=== PATIENT | female | born 1945 | race Caucasian/White ===

== ENCOUNTER 2017-09-25 09:05 | Inpatient (IN) | payer OTHER ==
--- NOTE | 2017-09-24 17:45 | GHP ---
[f rep st] HISTORY AND PHYSICAL DATE OF ADMISSION: 09/25/2017 This is for surgery for tomorrow, September 25, 2017. HISTORY OF PRESENT ILLNESS: The patient is a very pleasant 72-year-old female who comes to our offic e for the first time for evaluation of diagnosed gallstones. The patient reports she had a "terrible attack of abdominal pain" approximately 5 weeks ago and since that time has had similar episodes eliceo ry 4-5 days, accompanied by chills and vomiting. She had an ultrasound done at [facility], which demonstrated cholelithiasis, possible choledocholithiasis. She had laboratory studies done on er 2016, which demonstrated increased liver function tests, lipase and calcium. MEDICATIONS: Lisinopril. PAST SURGICAL HISTORY: Hysterectomy, oophorectomy, tonsillectomy, right nephrectomy. ALLERGIES: No known drug allergies. SOCIAL HISTORY: Never smoker, . REVIEW OF SYSTEMS: She had a negative 10-point review of systems. PHYSICAL EXAM: GENERAL: The patient is a pleasant female, in no apparent distress, non-jaundiced. HEAD AND NECK: Normocephalic, atraumatic. CHEST: CTA bilaterally. HEART: Regular rate. ABDOMEN: Soft, nontender. There is a midline suprapubic scar consistent with hysterectomy. EXTREMITIES: N o lower extremity edema. Normal dorsalis pedis pulse to palpation. LABORATORY STUDIES: Total bilirubin 1.5, AST 124, ALT 95, alkaline phosphatase 389, amylase 92. Laboratory studies from September 09, 2017: Alkaline phosphatase 437, AST 113, ALT 69. RADIOLOGY: [facility] ultrasound was reviewed, which demonstrates cholelithiasis, possible choled ocholithiasis. IMPRESSION: Cholelithiasis/choledocholithiasis. RECOMMENDATION: Laparoscopic cholecystectomy with cholangiogram was discussed with the patient in de tail, including risks of common bile duct injury, infection, nerve injury, need for ERCP all discusse d with the patient today and she will be scheduled for surgery tomorrow. /[id number]/MODL
--- NOTE | 2017-09-25 06:41 | PDHPUP ---
History & Physical Update H&P update statement: This history and physical update is based on an assessment of the patient which was completed after admission or registration (within 24 hours), but prior to the surgery/procedure. updated, done last evening
[2017-09-25] MEDS ORDERED: LR 1,000 ML IV ONE (09:24)
[2017-09-25] MEDS ORDERED: cefOXitin SODIUM 2 GM in D5W 100 ML IV ONE (09:24)
[2017-09-25] MEDS ORDERED: LIDOCAINE 1% 2 ML INJ ID PRN (09:24)
[2017-09-25] MEDS ORDERED: MIDAZOLAM 2 MG/2 ML VIAL IVP ONE (10:35)
--- NOTE | 2017-09-25 10:39 | PDANEPAE ---
ANE History of Present Illness L breast excisional Bx ANE Past Medical History - Cardiovascular History Hx Hypertension: Yes Hx Arrhythmias: No Hx Chest Pain: No Hx Coronary Artery / Peripheral Vascular Disease: No Hx CHF / Valvular Disease: No Hx Palpitations: No - Pulmonary History Hx COPD: No Hx Asthma/Reactive Airway Disease: No Hx Recent Upper Respiratory Infection: No Hx Oxygen in Use at Home: No Hx Sleep Apnea: No Sleep Apnea Screening Result - Last Documented: Negative Pulmonary History Comment: Hx triad asthma-currently stable - Neurologic History Hx Cerebrovascular Accident: No Hx Seizures: No Hx Dementia: No - Endocrine History Hx Diabetes: No - Renal History Hx Renal Disorders: Yes Renal History Comment: R kidney removed - Liver History Hx Hepatic Disorders: No - Neurological & Psychiatric Hx Hx Neurological and Psychiatric Disorders: No - Cancer History Hx Cancer: No - Congenital Disorder History Hx Congenital Disorders: No - GI History Hx Gastrointestinal Disorders: No - Other Health History Other Health History: none - Chronic Pain History Chronic Pain: No - Surgical History Prior Surgeries: NONE ANE Review of Systems Review of Systems: - Exercise capacity METS (RN): 4 METS ANE Patient History - Allergies Allergies/Adverse Reactions: No Known Allergies Allergy (Verified 09/24/17 16:49) - Home Medications Home medications: home medication list seen and reviewed Home Medications: Lisinopril 07/25/15 [Last Taken 09/24/17] - NPO status NPO Status: no food or drink >8 hours (H20 at 0600) NPO Since - Liquids (Date): 09/25/17 NPO Since - Liquids (Time): 09:15 NPO Since - Solids (Date): 09/24/17 NPO Since - Solids (Time): 10:00 - Anes Hx Anes Hx: no prior problems - Smoking Hx Smoking Status: Never smoked - Alcohol Use Alcohol Use: Rarely - Family Anes Hx Family Anes Hx: none Family Hx Anesthesia Complications: NONE ANE Labs/Vital Signs - Vital Signs Blood Pressure: 131/79 Heart Rate: 101 Respiratory Rate: 16 O2 Sat (%): 92 Height: 160.02 cm Weight: 62.142 kg ANE Physical Exam - Airway Neck exam: FROM Mallampati Score: Class 1 Mouth exam: normal dental/mouth exam - Pulmonary Pulmonary: no respiratory distress - Cardiovascular Cardiovascular: regular rate and rhythym - ASA Status ASA Status: II ANE Anesthesia Plan Anesthesia Plan: GA with mask (R/B/A explained and pt. agrees to proceed)
[2017-09-25] MEDS ORDERED: BUPIVACAINE 0.5% 30 ML SDV ONE ×2 (11:24→13:30)
[2017-09-25] MEDS ORDERED: HEPARIN 1000 UNIT/1 ML MDV ONE (11:25)
[2017-09-25] MEDS ORDERED: ceFAZolin 1 GM/5 ML SYR ONE (11:26)
[2017-09-25] MEDS ORDERED: IOTHALAMATE MEG (CONRAY) 50 ML VIAL IV ONE (11:45)
--- NOTE | 2017-09-25 12:17 | PDANEPAE ---
ANE History of Present Illness cholelithiasis s/f lap nuzhat with grams ANE Past Medical History - Cardiovascular History Hx Hypertension: Yes Hx Arrhythmias: No Hx Chest Pain: No Hx Coronary Artery / Peripheral Vascular Disease: No Hx CHF / Valvular Disease: No Hx Palpitations: No - Pulmonary History Hx COPD: No Hx Asthma/Reactive Airway Disease: No Hx Recent Upper Respiratory Infection: No Hx Oxygen in Use at Home: No Hx Sleep Apnea: No Sleep Apnea Screening Result - Last Documented: Negative - Neurologic History Hx Cerebrovascular Accident: No Hx Seizures: No Hx Dementia: No - Endocrine History Hx Diabetes: No - Renal History Hx Renal Disorders: Yes Renal History Comment: R kidney removed - Liver History Hx Hepatic Disorders: No - Neurological & Psychiatric Hx Hx Neurological and Psychiatric Disorders: No - Cancer History Hx Cancer: No - Congenital Disorder History Hx Congenital Disorders: No - GI History Hx Gastrointestinal Disorders: No - Other Health History Other Health History: none - Chronic Pain History Chronic Pain: No - Surgical History Prior Surgeries: NONE ANE Review of Systems Review of Systems: - Exercise capacity METS (RN): 4 METS ANE Patient History - Allergies Allergies/Adverse Reactions: No Known Allergies Allergy (Verified 09/24/17 16:49) - Home Medications Home medications: home medication list seen and reviewed Home Medications: Lisinopril 07/25/15 [Last Taken 09/24/17] - NPO status NPO Since - Liquids (Date): 09/25/17 NPO Since - Liquids (Time): 09:15 NPO Since - Solids (Date): 09/24/17 NPO Since - Solids (Time): 10:00 - Smoking Hx Smoking Status: Never smoked - Alcohol Use Alcohol Use: Rarely - Family Anes Hx Family Anes Hx: none Family Hx Anesthesia Complications: NONE ANE Labs/Vital Signs - Labs - BMP Sodium: reviewed and okay - Vital Signs Blood Pressure: 131/79 Heart Rate: 101 Respiratory Rate: 16 O2 Sat (%): 92 Height: 160.02 cm Weight: 62.142 kg ANE Physical Exam - Airway Mallampati Score: Class 1 - Pulmonary Pulmonary: no respiratory distress - Cardiovascular Cardiovascular: regular rate and rhythym - ASA Status ASA Status: II ANE Anesthesia Plan Anesthesia Plan: general endotracheal anesthesia
[2017-09-25] MEDS ORDERED: ONDANSETRON 4 MG/2 ML VIAL IVP PRN ×2 (12:26→13:41)
--- NOTE | 2017-09-25 12:29 | POSTOPPROG ---
Post Op Note Date of Operation: 09/25/17 Surgeon: Javon Blackwell Anesthesiologist: JESUS Anesthesia: GET(General Endotracheal) Pre-op Diagnosis: ACUTE CHOLECYSTITIS Post-op Diagnosis: SAME Indication: PAIN Procedure: LAP CHOLEY WITH GRAMS Findings: acute nuzhat, large cd with stone Inf/Abcess present in the surg proc area at time of surgery?: Yes Depth: Organ Space EBL: Minimal Complications: 0 Specimen(s): GALLBLADDER
[2017-09-25] MEDS ORDERED: D5W 1/2 NS W/ 20 KCl/L 1,000 ML IV SCH (12:30)
[2017-09-25] MEDS ORDERED: PROPOFOL/EMULSION 500 MG/50 ML BOTTLE IV ONE (12:35)
[2017-09-25] MEDS ORDERED: fentaNYL 100 MCG/2 ML INJ ONE ×2 (12:35→14:16)
[2017-09-25] MEDS ORDERED: LIDOCAINE 2% 100 MG/5 ML SYR ONE (12:37)
[2017-09-25] MEDS ORDERED: ROCURONIUM 50 MG/5 ML VIAL ONE (12:37)
[2017-09-25] MEDS ORDERED: DEXAMETHASONE 4 MG/ML VIAL ONE (13:03)
[2017-09-25] MEDS ORDERED: ONDANSETRON 4 MG/2 ML VIAL ONE (13:03)
[2017-09-25] MEDS ORDERED: PHENYLEPHRINE HCL 100 MCG/ML SYR ONE (13:30)
[2017-09-25] MEDS ORDERED: PROMETHAZINE HCL 25 MG/ML INJ IVP PRN (13:41)
[2017-09-25] MEDS ORDERED: LABETALOL HCL 5 MG/ML 20 ML MDV IVP PRN (13:41)
[2017-09-25] MEDS ORDERED: HYDROCODONE/APAP 5/325 TAB PO PRN (13:41)
[2017-09-25] MEDS ORDERED: METOCLOPRAMIDE 10 MG/2 ML VIAL IVP PRN (13:41)
[2017-09-25] MEDS ORDERED: OXYCODONE/APAP 5/325 TAB PO PRN (13:41)
[2017-09-25] MEDS ORDERED: DEXAMETHASONE 4 MG/ML VIAL IVP PRN (13:41)
[2017-09-25] MEDS ORDERED: PHENYLEPHRINE HCL 100 MCG/ML SYR IVP PRN (13:41)
[2017-09-25] MEDS ORDERED: NALOXONE HCL 0.4 MG/ML INJ IVP PRN (13:41)
[2017-09-25] MEDS ORDERED: MEPERIDINE 25 MG/ML SYR IVP PRN (13:41)
[2017-09-25] MEDS ORDERED: ALBUTEROL 3 ML DEYVIAL IH PRN (13:41)
[2017-09-25] MEDS ORDERED: ACETAMINOPHEN 500 MG TAB PO PRN (13:41)
[2017-09-25] MEDS ORDERED: LR 500 ML IV PRN (13:41)
[2017-09-25] MEDS ORDERED: SUGAMMADEX SODIUM 200 MG/2 ML VIAL IVP ONE (13:43)
[2017-09-25] MEDS: fentaNYL 100 MCG/2 ML INJ IVP PRN ×4 (14:18→14:48)
--- NOTE | 2017-09-25 15:04 | POSTANESTH ---
Post Anesthetic Evaluation Cardiovascular Status: Normal, Stable Respiratory Status: Normal, Stable Level of Consciousness/Mental Status: Can Participate in Eval Pain Control: Adequate, Prn Tx Ordered Nausea/Vomiting Control: Adequate, Prn Tx Ordered Complications Possibly Related to Anesthesia: None Noted
[2017-09-25] MEDS: KETOROLAC 15 MG/1 ML SDV IVP SCH ×2 (18:03→23:22)
[2017-09-25] MEDS: HYDROCODONE/APAP 5/325 TAB PO PRN (19:29)
--- NOTE | 2017-09-26 00:27 | GCON ---
[f rep st] CONSULTATION DATE OF CONSULTATION: 09/25/2017 REASON FOR CONSULTATION: Choledocholithiasis. HISTORY OF PRESENT ILLNESS: The patient is a very pleasant 72-year-old female who has been having 5 weeks of biliary colic occurring approximately 4-5 days. The pain is in the upper mid abdomen, did not radiate to her back or her chest. It is accompanied by chills and some nausea and vomiting. She did have a sonogram at an outside imaging study that showed cholelithiasis and possible choledocholithiasis, and she had abnormal liver enzymes in conjunction with that. She underwent a laparoscopic cholecystectomy today, and intraoperative cholangiogram showed a common bile duct stone. I have been called to help evaluate and treatment and removal of the common bile duct stone. PAST MEDICAL HISTORY: Hypertension. PAST SURGICAL HISTORY: Hysterectomy, oophorectomy, tonsillectomy, right nephrectomy. MEDICATIONS: At home include lisinopril. ALLERGIES: No known drug allergies. SOCIAL HISTORY: She does not smoke. She is . She drinks alcohol infrequently. FAMILY HISTORY: no colon cancer REVIEW OF SYSTEMS: She is a little sedated post surgery. She does not complain any fevers or chills at present. She does have abdominal discomfort related to her operation today. As an outpatient, she denied any fevers, but she did have the chills and the nausea and vomiting as noted in the HPI. A complete review of systems was performed and is negative other than noted here and the HPI. PHYSICAL EXAMINATION: GENERAL: Well-developed well-nourished female sitting in her bed. She is somnolent, but easily arousable. VITAL SIGNS: Temperature 36.7, blood pressure 150/63, pulse 87, respirations 16, 99% on 2 L. HEENT: Eyes: Minimally icterus. JIHAN. EOMI. Mouth: No lesions. Moist membranes. NECK: Supple. No JVD. BACK: No spine tenderness. LUNGS: Clear to auscultation. CARDIAC: S1, S2. Regular rate and rhythm. No murmurs, rubs, or gallops appreciated. ABDOMEN: Bowel sounds are significantly decrease. Normal pitch. Abdomen is soft with mild tenderness. No rebound or guarding. EXTREMITIES: No cyanosis, clubbing, or edema. NEUROLOGIC: She is somnolent, but easily arousable. She is nonfocal. Cranial nerves intact. SKIN: No stigmata of advanced liver disease. No rashes. LABORATORY DATA: From today, total bilirubin 1.5, AST 124, ALT 95, alkaline phosphatase 39, total protein 6.6, albumin 3.4. Amylase 92. Fluoroscopy: The official reading just shows opacified common bile duct and cystic duct remnant. Dr. Blackwell recognized a stone on real-time imaging. My review with radiologist - probably distal CBD stone ASSESSMENT: 1. Choledocholithiasis. 2. Elevated liver enzymes. 3. Status post cholecystectomy. 4. Hypertension. RECOMMENDATIONS: 1. Proceed with ERCP tomorrow morning for choledocholithiasis, sphincterotomy, and stone removal. 2. Follow liver enzymes in morning. 3. Check CBC in a.m. 4. Further recommendations to follow results and clinical course. Thank you for allowing me to participate in the patient's healthcare. Do not hesitate to call me with any questions. Copy requested to: Alfa Dickson /[id number]/MODL MTDD
[2017-09-26] MEDS: KETOROLAC 15 MG/1 ML SDV IVP SCH ×4 (05:13→23:15)
[2017-09-26 06:03] LABS: % IMMATURE GRANULYOCYTES 0.6 % (0.0-1.1); ABSOLUTE IMMATURE GRANULOCYTES 0.07 10^3/uL (0.00-0.10); ADD DIFF? NO; ADD MORPH? NO; ADD SCAN? NO; ATYPICAL LYMPHOCYTE FLAG 0 (0-99); FRAGMENT RBC FLAG 0 (0-99); HEMATOCRIT 39.1 % (38.0-47.0); HEMOGLOBIN 12.9 g/dL (12.6-16.3); LEFT SHIFT FLG 10 (0-99); LIPEMIA HEMOLYSIS FLAG 80 (0-99); MEAN CELL HEMOGLOBIN 32.3 pg (27.9-34.1); MEAN CELL VOLUME 97.8 fL (81.5-99.8); MEAN PLATELET VOLUME 14.8 fL (8.7-11.7); PLATELET CLUMPS FLAG 0 (0-99); PLATELET COUNT 97 10^3/uL (150-400); RED CELL DISTRIBUTION WIDTH 13.4 % (11.5-15.2)
[2017-09-26 06:14] LABS: ALANINE AMINOTRANSFERASE 76 IU/L (9-52); ALBUMIN 2.7 g/dL (3.5-5.0); ALKALINE PHOSPHATASE 256 IU/L (38-126); AMYLASE 66 IU/L (30-110); ANION GAP 10 mEq/L (8-16); ASPARTATE AMINOTRANSFERASE 83 IU/L (14-46); BILIRUBIN,TOTAL 3.3 mg/dL (0.1-1.4); BILIRUBIN-CONJUGATED 1.6 mg/dL (0.0-0.5); BILIRUBIN-UNCONJUGATED 1.7 mg/dL (0.0-1.1); CALCIUM 10.1 mg/dL (8.5-10.4); CARBON DIOXIDE 23 mEq/l (22-31); CHLORIDE 101 mEq/L (97-110); CREATININE 0.9 mg/dL (0.6-1.0); GLOMERULAR FILTRATION RATE > 60; GLUCOSE 125 mg/dL (70-100); POTASSIUM 5.3 mEq/L (3.5-5.2); SODIUM 134 mEq/L (134-144); TOTAL PROTEIN 5.2 g/dL (6.3-8.2)
[2017-09-26] MEDS: ERTAPENEM 1 GM VIAL IVP SCH (09:15)
[2017-09-26] MEDS: HYDROmorphONE/DILAUDID 1 MG/ML INJ IVP PRN ×2 (09:15→13:35)
[2017-09-26] MEDS: LISINOPRIL 20 MG TAB PO SCH (09:15)
--- NOTE | 2017-09-26 12:15 | ASMTCMCOM ---
CM Note CM Note Notes: Spoke w/RN, anticipate pt will dc home w/support of when medically stable. CM available for any changes. Date Signed: 09/26/2017 12:14 PM Electronically Signed By:Kirsten Smith RN
[2017-09-26] MEDS ORDERED: GLUCAGON HCL 1 MG VIAL ONE (12:28)
[2017-09-26] MEDS ORDERED: IOTHALAMATE MEG (CONRAY) 50 ML VIAL IV ONE (12:28)
--- NOTE | 2017-09-26 13:27 | SOAPPROG ---
SOAP Progress Note Assessment/Plan: Assessment: Comfortable/afebrile/abdomen soft and nontender/wound okay/nonicteric Plan: ERCP today 09/26/17 13:26 Objective: Vital Signs Temp Pulse Resp BP Pulse Ox 37.7 C 93 15 158/73 H 93 09/26/17 11:21 09/26/17 11:21 09/26/17 11:21 09/26/17 11:21 09/26/17 11:21 Laboratory Results 09/26/17 05:01 09/26/17 05:01 09/25/17 09/26/17 09/27/17 05:59 05:59 05:59 Intake Total 1575 Output Total 200 Balance 1375 ICD10 Worksheet Patient Problems: Problems Problem Status Onset Gallstone pancreatitis Acute - ICD10 Problem Qualifiers (1) Gallstone pancreatitis
[2017-09-26] MEDS ORDERED: MIDAZOLAM 2 MG/2 ML VIAL IVP ONE (15:00)
[2017-09-26] MEDS ORDERED: D5W 1/2 NS 1,000 ML IV SCH (15:00)
--- NOTE | 2017-09-26 15:03 | PDANEPAE ---
ANE History of Present Illness s/p lap nuzhat with retained common duct stone. Now s/f ERCP ANE Past Medical History - Cardiovascular History Hx Hypertension: Yes Hx Arrhythmias: No Hx Chest Pain: No Hx Coronary Artery / Peripheral Vascular Disease: No Hx CHF / Valvular Disease: No Hx Palpitations: No - Pulmonary History Hx COPD: No Hx Asthma/Reactive Airway Disease: No Hx Recent Upper Respiratory Infection: No Hx Oxygen in Use at Home: No Hx Sleep Apnea: No Sleep Apnea Screening Result - Last Documented: Negative - Neurologic History Hx Cerebrovascular Accident: No Hx Seizures: No Hx Dementia: No - Endocrine History Hx Diabetes: No - Renal History Hx Renal Disorders: Yes Renal History Comment: R kidney removed - Liver History Hx Hepatic Disorders: No - Neurological & Psychiatric Hx Hx Neurological and Psychiatric Disorders: No - Cancer History Hx Cancer: No - Congenital Disorder History Hx Congenital Disorders: No - GI History Hx Gastrointestinal Disorders: No - Other Health History Other Health History: none - Chronic Pain History Chronic Pain: No - Surgical History Prior Surgeries: NONE ANE Review of Systems Review of Systems: - Exercise capacity METS (RN): 4 METS ANE Patient History - Allergies Allergies/Adverse Reactions: No Known Allergies Allergy (Verified 09/24/17 16:49) - Home Medications Home medications: home medication list seen and reviewed Home Medications: Lisinopril [Zestril 20 mg (*)] 20 mg PO DAILY 07/25/15 [Last Taken 09/24/17] Cholecalciferol Vit D3 [Vitamin D3 2000 units tab (OTC)] 2,000 units PO DAILY [Last Taken Unknown] - NPO status NPO Status: no food or drink >8 hours NPO Since - Liquids (Date): 09/26/17 NPO Since - Liquids (Time): 00:00 NPO Since - Solids (Date): 09/25/17 NPO Since - Solids (Time): 20:00 - Anes Hx Anes Hx: no prior problems - Smoking Hx Smoking Status: Never smoked - Alcohol Use Alcohol Use: Rarely - Family Anes Hx Family Anes Hx: none Family Hx Anesthesia Complications: NONE ANE Labs/Vital Signs - Labs Result Diagrams: 09/26/17 05:01 09/26/17 05:01 - Vital Signs Blood Pressure: 158/73 Heart Rate: 93 Respiratory Rate: 15 O2 Sat (%): 93 Height: 160.02 cm Weight: 62.142 kg ANE Physical Exam - Airway Neck exam: FROM Mallampati Score: Class 2 Mouth exam: normal dental/mouth exam - Pulmonary Pulmonary: no respiratory distress - Cardiovascular Cardiovascular: regular rate and rhythym - ASA Status ASA Status: II ANE Anesthesia Plan Anesthesia Plan: general endotracheal anesthesia
[2017-09-26] MEDS ORDERED: REMIFENTANIL HCL 1 MG VIAL ONE (15:17)
[2017-09-26] MEDS ORDERED: PROPOFOL/EMULSION 500 MG/50 ML BOTTLE IV ONE (15:17)
[2017-09-26] MEDS ORDERED: fentaNYL 100 MCG/2 ML INJ ONE (15:17)
[2017-09-26] MEDS ORDERED: LIDOCAINE HCL 160 MG/4 ML LTA KIT TP ONE (15:19)
[2017-09-26] MEDS ORDERED: ONDANSETRON 4 MG/2 ML VIAL ONE (15:20)
[2017-09-26] MEDS ORDERED: DEXAMETHASONE 4 MG/ML VIAL ONE (15:20)
[2017-09-26] MEDS ORDERED: PHENYLEPHRINE HCL 100 MCG/ML SYR ONE (15:34)
[2017-09-26] MEDS ORDERED: INDOMETHACIN 50 MG SUPP PR ONE (15:43)
[2017-09-26] MEDS ORDERED: NALOXONE HCL 0.4 MG/ML INJ ONE (16:24)
--- NOTE | 2017-09-26 16:31 | GIREPORT ---
[facility] Surgical Services - Endoscopy Department Patient Name: Edelmira Foster Procedure Date: 09/26/2017 2:45 PM Patient Type: Inpatient Attending MD/ ER Physician: Castillo Zimmerman MD Procedure: ERCP Indications: Bile duct stone(s) Providers: Castillo Zimmerman MD Medicines: General Anesthesia, Indomethacin 100 mg SC Complications: No immediate complications. Description of Procedure: After obtaining informed consent, the scope was passed under direct vis ion. Throughout the procedure, the patient's blood pressure, pulse, and oxyg en saturations were monitored continuously. The Duodenalscope was introduc ed through the mouth, and advanced to the duodenum and used to inject cont rast into the bile duct. The ERCP was accomplished without difficulty. The patient tolerated the procedure well. The ERCP was accomplished without difficulty. The patient tolerated the procedure well. Findings: The esophagus was successfully intubated under direct vision. The scope was advanced to a normal major papilla in the descending duodenum without detailed examination of the pharynx, larynx and associated structures, and upper GI tract. The upper GI tract was grossly normal. The bile duct wa s deeply cannulated with the short-nosed traction sphincterotome with gianna de wire. Contrast was injected. I personally interpreted the bile duct robson ges. There was brisk flow of contrast through the ducts. Image quality was adequate. Contrast extended to the main bile duct. Opacification of the middle third of the main bile duct was successful. The maximum diameter of the ducts was greater than 20 mm. The middle third of the main bile parmjit t contained one stone, which was 15 mm in diameter. Choledocholithiasis w as found in the dilated duct. A 15 mm biliary sphincterotomy was made with a braided short nose sphincterotome using ERBE electrocautery. The sphincterotomy oozed blood. The biliary tree was swept with a 15 mm bal loon starting at the middle third of the main bile duct. One stone was remov ed. No stones remained. Estimated Blood Loss: Estimated blood loss: none. Estimated blood loss was minimal. Post Op Diagnosis: - Choledocholithiasis was found with marked biliary dilation. Complete removal was accomplished by biliary sphincterotomy and balloon extracti on. - A biliary sphincterotomy was performed. - The biliary tree was swept with clearance of CBD of one large stone. No other stones identified. Recommendation: - Return patient to [facility] for [facility] care. - Clear liquid diet today. - CBC, CMP, and Lipase in am. Attending Participation: I personally performed the entire procedure. Castillo Zimmerman MD Castillo Zimmerman MD 09/26/2017 4:31:30 PM This report has been signed electronicallyCastillo Zimmerman MD Number of Addenda: 0 Note Initiated On: 09/26/2017 2:45 PM [email or web address]
[2017-09-27 05:25] LABS: HEMATOCRIT 40.5 % (38.0-47.0); HEMOGLOBIN 12.9 g/dL (12.6-16.3); MEAN CELL HEMOGLOBIN 31.5 pg (27.9-34.1); MEAN CELL HEMOGLOBIN CONCENTR. 31.9 g/dL (32.4-36.7); RED BLOOD CELL COUNT 4.09 10^6/uL (4.18-5.33); RED CELL DISTRIBUTION WIDTH 13.1 % (11.5-15.2)
[2017-09-27] MEDS: KETOROLAC 15 MG/1 ML SDV IVP SCH ×3 (05:37→17:47)
[2017-09-27 05:41] LABS: ALANINE AMINOTRANSFERASE 66 IU/L (9-52); ALBUMIN 2.6 g/dL (3.5-5.0); ALKALINE PHOSPHATASE 245 IU/L (38-126); ANION GAP 10 mEq/L (8-16); ASPARTATE AMINOTRANSFERASE 55 IU/L (14-46); BILIRUBIN,TOTAL 1.2 mg/dL (0.1-1.4); CALCIUM 10.1 mg/dL (8.5-10.4); CARBON DIOXIDE 25 mEq/l (22-31); CHLORIDE 103 mEq/L (97-110); CREATININE 0.8 mg/dL (0.6-1.0); GLOMERULAR FILTRATION RATE > 60; GLUCOSE 110 mg/dL (70-100); POTASSIUM 4.9 mEq/L (3.5-5.2); SODIUM 138 mEq/L (134-144); TOTAL PROTEIN 5.5 g/dL (6.3-8.2)
[2017-09-27] MEDS: LISINOPRIL 20 MG TAB PO SCH (08:29)
[2017-09-27] MEDS: HYDROCODONE/APAP 5/325 TAB PO PRN ×3 (08:30→17:47)
[2017-09-27] MEDS: ERTAPENEM 1 GM VIAL IVP SCH (08:37)
--- NOTE | 2017-09-27 09:47 | SOAPPROG ---
SOAP Progress Note Assessment/Plan: Assessment: 1. S/P papillotomy and removal of large CBD stone yesterday; doing well. 2. Elevated Lipase without clinical evidence of pancreatitis today, likely midl pancreatic inflammation for ERCP and Papillotomy. Plan: 1. TOMMY. 2. Home soon. Castillo Zimmerman MD 09/27/17 09:44 Subjective: CC: CBD stone. Interval HPI: Patient without c/o abdominal pain or nausea. Tolerating po clears. Wants to go home. Objective: Vital Signs Temp Pulse Resp BP Pulse Ox 36.4 C 60 16 169/72 H 94 09/27/17 07:05 09/27/17 07:05 09/27/17 07:05 09/27/17 07:05 09/27/17 07:05 Laboratory Results 09/27/17 04:23 09/27/17 04:23 09/26/17 09/27/17 09/28/17 05:59 05:59 05:59 Intake Total 1575 3121 Output Total 200 300 Balance 1375 2821 Laboratory Tests 09/26/17 09/27/17 05:01 04:23 Total Bilirubin 3.3 H D 1.2 D AST 83 H 55 H ALT 76 H 66 H Alkaline Phosphatase 256 H 245 H Lipase 9320 H Physical Exam - Physical Exam General Appearance: WD/WN, alert, no apparent distress Respiratory: lungs clear, normal breath sounds Cardiac/Chest: regular rate, rhythm Abdomen: normal bowel sounds, non-tender, soft Skin: normal color, warm/dry Neuro/Psych: alert, normal mood/affect, oriented x 3 ICD10 Worksheet Patient Problems: Problems Problem Status Onset Gallstone pancreatitis Acute
--- NOTE | 2017-09-27 11:16 | SOAPPROG ---
CRYSTAL Progress Note Assessment/Plan: Assessment: 72yo F s/p lap nuzhat and ERCP for choledocholithiasis Pain well controlled today Labs improving. Lipase elevated today - post-ERCP pancreatitis? Patient asymptomatic +flatus and BMs Advance diet to regular Dispo: likely DC this afternoon or tomorrow if tolerates diet and pain controlled. F/u Dr. Blackwell 1-2 weeks or sooner if worsening symptoms S: feels great this morning. No complaints. No pain. Hungry. Passing gas O: laying in bed, comfortable, NAD No increased WOB +BS, abd soft, nt, nd. Incisions CDI Objective: Vital Signs Temp Pulse Resp BP Pulse Ox 36.4 C 60 16 169/72 H 94 09/27/17 07:05 09/27/17 07:05 09/27/17 07:05 09/27/17 07:05 09/27/17 07:05 Laboratory Results 09/27/17 04:23 09/27/17 04:23 09/26/17 09/27/17 09/28/17 05:59 05:59 05:59 Intake Total 1575 3121 Output Total 200 300 Balance 1375 4921 ICD10 Worksheet Patient Problems: Problems Problem Status Onset Gallstone pancreatitis Acute
[2017-09-28] MEDS: KETOROLAC 15 MG/1 ML SDV IVP SCH ×2 (00:17→06:22)
[2017-09-28 07:35] VITALS: BP 156/89; PULSE 73; RESP 14; TEMP 98.2; O2SAT 98
[2017-09-28] MEDS: HYDROCODONE/APAP 5/325 TAB PO PRN (07:53)
[2017-09-28] MEDS: LISINOPRIL 20 MG TAB PO SCH (07:54)
[2017-09-28] MEDS: ERTAPENEM 1 GM VIAL IVP SCH (07:54)
--- NOTE | 2017-09-28 09:50 | SOAPPROG ---
SOAP Progress Note Assessment/Plan: Assessment/Plan: 72 Y F s/p lap nuzhat and ercp, choledocolithiasis. Doing well. Asymptomatic from mild pancreatitis. D/c to home today. See d/c summary. S: eating, no N/V, pain controlled. some diarrhea, but no cramps for fever. O: alert, nad no jaundice ctab rrr abd soft, +BS, inc cdi 09/28/17 09:48 Objective: Vital Signs Temp Pulse Resp BP Pulse Ox 36.8 C 73 14 156/89 H 98 09/28/17 07:31 09/28/17 07:31 09/28/17 07:31 09/28/17 07:31 09/28/17 07:31 Laboratory Results 09/27/17 04:23 09/27/17 04:23 09/27/17 09/28/17 09/29/17 05:59 05:59 05:59 Intake Total 3121 850 Output Total 300 950 Balance 2821 -100 ICD10 Worksheet Patient Problems: Problems Problem Status Onset Gallstone pancreatitis Acute
--- NOTE | 2017-09-28 11:26 | GDS ---
[f rep st] DISCHARGE SUMMARY DISCHARGE DIAGNOSES: 1. Cholelithiasis. 2. Choledocholithiasis. 3. Acute cholecystitis. 4. Other diagnoses include hypertension, history of hysterectomy, oophorectomy , tonsillectomy, and right nephrectomy. HOSPITAL COURSE: The patient is a pleasant 72-year-old female who moved here with her from [place], [place], to be closer to her daughter and family, who has been having intermittent right upper quadrant attacks of pain. She was found to have gallstones and elevated liver function tests. She underwent a laparoscopic cholecystectomy with intraoperative cholangiogram with Dr. Blackwell. She was found to have a large common bile duct with a filling defect on fluoroscopy. The procedure was uncomplicated, and she tolerated it well. Dr. Bret Kendall from [facility] was consulted, and she underwent ERCP for choledocholithiasis. However, removal of a common bile duct stone was accomplished by biliary sphincterotomy and balloon extraction. Post ERCP blood tests showed improvement, although not resolution in her liver function tests. She did have an elevated lipase postprocedure of over 9000. We had nothing to compare this to, and the patient was clinically doing very well. Upon discharge, patient was eating well, passing gas, having stools, without nausea, vomiting, or fevers. DISCHARGE INSTRUCTIONS: Patient was discharged to home in stable condition with plans for outpatient followup. All limitations were discussed prior to her going home to her and 2 dogs in [place]. PROCEDURES: 1. Laparoscopic cholecystectomy with intraoperative cholangiogram with Dr. Javon Blackwell. 2. ERCP with Dr. Bret Kendall. /[id number]/MODL MTDD
--- NOTE | 2017-09-28 11:56 | ASDISCHSUM ---
Discharge Information Plan Status:Home with No Needs Medically Cleared to Leave:09/27/2017 Discharge Date:09/28/2017 11:16 AM CM D/C Disposition: ADT D/C Disposition:Home, Routine, Self-Care Projected Discharge Date:09/28/2017 12:00 AM Transportation at D/C: Discharge Delay Reason: Follow-Up Date:09/28/2017 12:00 AM Discharge Slot: Final Diagnosis: Placement Information Patient Contact Information Contact Name:BENJA Relationship:Daughter Address: Home Phone: City: [facility] Phone: [facility]/[employer] Code: Email: Financial Information Financial Class:Medicare Advantage Plans Primary Plan Desc:[facility] ADVANTAGE PLANS Primary Plan Number:[id number] Secondary Plan Desc: Secondary Plan Number: Assessment Information [facility] CM Progress Note CM Note CM Note Notes: Spoke w/RN, anticipate pt will dc home w/support of when medically stable. CM available for any changes. Date Signed: 09/26/2017 12:14 PM Electronically Signed By:Kirsten Smith RN Intervention Information Intervention Type:*IM-Signed Date of Service:09/28/2017 10:59 AM Patient Type:Inpatient Staff Member:Elana Albert Hours: Discipline: Severity: Comment:
== END 2017-09-28 11:16 | disposition home or self-care (01) | DRG 417 ==
LOC: FSGY 09:05 → INTOOBSV 15:53 → F3E 15:53 → OBSVTOIN 09-26 13:33
PROVIDERS: ADMIT Surgery; ATTEND Surgery
PROC: 0FT44ZZ Resection of Gallbladder, Percutaneous Endoscopic Approach (ICD-10-PCS; principal; 2017-09-25 11:00)
PROC: BF101ZZ Fluoroscopy of Bile Ducts using Low Osmolar Contrast (ICD-10-PCS; principal; 2017-09-25 11:00)
PROC: 0F9C80Z Drainage of Ampulla of Vater with Drainage Device, Via Natural or Artificial Opening Endoscopic (ICD-10-PCS; 2017-09-26)
PROC: 0FC98ZZ Extirpation of Matter from Common Bile Duct, Via Natural or Artificial Opening Endoscopic (ICD-10-PCS; 2017-09-26)
DX: K80.43 Calculus of bile duct with acute cholecystitis with obstruction (principal); K85.10 Biliary acute pancreatitis without necrosis or infection; I10 Essential (primary) hypertension; Z90.5 Acquired absence of kidney
CPT/HCPCS: G0378; J0694; J1100; J1170; J1335; J1610; J1885; J2001; J2250; J2310; J2370; J2405; J2704; J3010; Q9961